=== PATIENT | male | born 1955 | race African-American/Black ===

== ENCOUNTER 2017-08-19 14:39 | Emergency (ER) | payer SELFPAY ==
[~2017-08-19] VITALS: Ht 167.6 cm; Wt 83.4 kg
[~2017-08-19 14:39] MED LIST: ANTIVERT PO; ANTIVERT25 MG PO; CEPHALEXIN500 M1 PO; COLCHICINE0.6 MG PO; FLEXERIL PO; NAPROSYN500 MG PO; NO; ROBITUSSIN AC10 ML PO; ULTRAM50 M1 PO
[2017-08-19 15:28] LABS: HEMATOCRIT 40.7 % (39.0-50.0); HEMOGLOBIN 13.6 g/dl (14.0-18.0); IMMATURE GRANULOCYTES 0.3 % (0.0-1.0); MEAN CELL VOLUME 81.9 fL CALC (80.0-100.0); MEAN CORPUSCULAR HGB 27.4 pG CALC (26.0-32.0); MEAN CORPUSCULAR HGB CONC 33.4 g/L CALC (32.0-36.0); NEUT# 5.58 thou/uL (1.82-7.42); RED BLOOD COUNT 4.97 mill/uL (4.70-6.10); RED CELL DISTRI WIDTH 15.8 % (11.5-15.5)
[2017-08-19 15:30] LABS: URINE BILIRUBIN - DIPSTICK NEGATIVE (NEGATIVE); URINE BLOOD DIPSTICK NEGATIVE (NEGATIVE); URINE COLOR YELLOW; URINE GLUCOSE - DIPSTICK NEGATIVE (NEGATIVE); URINE KETONE NEGATIVE (NEGATIVE); URINE LEUK ESTERASE NEGATIVE (NEGATIVE); URINE NITRITE - DIPSTICK NEGATIVE (Negative); URINE PH 5.5 (4.5-8.0); URINE PROTEIN - DIPSTICK NEGATIVE (NEG-TRACE); URINE SPECIFIC GRAVITY 1.015; URINE UROBILINOGEN - DIPSTICK 0.2 E.U./dL (0.2)
[2017-08-19 15:34] LABS: URINE CLARITY CLEAR
[2017-08-19 15:46] LABS: ALBUMIN 3.3 g/dL (3.2-5.0); ALKALINE PHOSPHATASE 74 u/l (38-126); ANION GAP 16 (6-22 (CALC)); BILIRUBIN, TOTAL 0.3 mg/dL (0.0-1.4); BUN 11 mg/dL (9-20); BUN/CREATININE RATIO 11 (12-20 (CALC)); CARBON DIOXIDE 25 mmol/l (22-30); CHLORIDE 105 mmol/l (95-108); GFR > 60 ML/MIN (>=60 (CALC)); GFR FOR AFR.AMER. > 60 ML/MIN (>=60 (CALC)); LIPASE 180 u/l (23-300); POTASSIUM 4.3 mmol/l (3.5-5.1); SGOT/AST 21 u/l (17-59); SGPT/ALT 40 u/l (21-72); SODIUM 141 mmol/l (137-146)
[2017-08-19] MEDS ORDERED: TRAMADOL HYDROC50 MG PO (15:51)
[2017-08-19] MEDS ORDERED: FLEXERIL PO (15:51)
[2017-08-19] MEDS ORDERED: NAPROXEN DR500 MG PO (15:51)
[2017-08-19 16:06] VITALS: BP 125/64
== END 2017-08-19 16:14 | disposition home or self-care (01) | DRG 392 ==
LOC: ED 14:39
PROVIDERS: Emergency Medicine
DX: R10.9 Unspecified abdominal pain (principal); F17.210 Nicotine dependence, cigarettes, uncomplicated; M10.9 Gout, unspecified; R42 Dizziness and giddiness

== ENCOUNTER 2018-07-10 15:03 | Emergency (ER) | payer OTHER ==
[~2018-07-10] VITALS: Ht 167.6 cm; Wt 78.8 kg
[~2018-07-10 15:03] MED LIST changes: +NAPROXEN DR500 MG PO; +TRAMADOL HYDROC50 MG PO
[2018-07-10] MEDS ORDERED: FLEXERIL PO (17:11)
[2018-07-10] MEDS ORDERED: NAPROSYN500 MG PO (17:11)
[2018-07-10 17:23] VITALS: BP 110/64
== END 2018-07-10 17:23 | disposition home or self-care (01) | DRG 552 ==
LOC: ED 15:03
DX: S13.9XXA Sprain of joints and ligaments of unspecified parts of neck, initial encounter (principal); S33.5XXA Sprain of ligaments of lumbar spine, initial encounter; F17.200 Nicotine dependence, unspecified, uncomplicated; V49.50XA Passenger injured in collision with unspecified motor vehicles in traffic accident, initial encounter

== ENCOUNTER 2020-04-08 10:54 | Emergency (ER) | payer SELFPAY ==
[~2020-04-08] VITALS: Ht 167.6 cm; Wt 72.0 kg
[2020-04-08] MEDS ORDERED: FAMCICLOVIR500 MG PO (11:52)
[2020-04-08] MEDS ORDERED: ZOVIRAX52 TOP (11:52)
[2020-04-08] MEDS ORDERED: ULTRAM50 M1 PO (11:52)
[2020-04-08 12:01] VITALS: BP 96/75
== END 2020-04-08 12:26 | disposition home or self-care (01) | DRG 596 ==
LOC: ED 10:54
DX: B02.9 Zoster without complications (principal); F17.200 Nicotine dependence, unspecified, uncomplicated

== ENCOUNTER 2020-04-17 11:22 | Emergency (ER) | payer SELFPAY ==
[~2020-04-17] VITALS: Ht 167.6 cm; Wt 72.0 kg
[~2020-04-17 11:22] MED LIST changes: +FAMCICLOVIR500 MG PO; +ZOVIRAX52 TOP
[2020-04-17 11:25] VITALS: BP 95/66
[2020-04-17] MEDS ORDERED: VALACYCLOVIR HCL1 GM PO (12:04)
== END 2020-04-17 12:17 | disposition home or self-care (01) | DRG 596 ==
LOC: ED 11:22
DX: B02.9 Zoster without complications (principal); F17.200 Nicotine dependence, unspecified, uncomplicated

== ENCOUNTER 2020-04-23 15:39 | Emergency (ER) | payer SELFPAY ==
[~2020-04-23] VITALS: Ht 167.6 cm; Wt 70.5 kg
[~2020-04-23 15:39] MED LIST changes: +VALACYCLOVIR HCL1 GM PO
[2020-04-23 16:44] LABS: HEMATOCRIT 41.5 % (39.0-50.0); HEMOGLOBIN 13.3 g/dl (14.0-18.0); IMMATURE GRANULOCYTES 0.5 % (0.0-5.0); MEAN CELL VOLUME 77.6 fL CALC (80.0-100.0); MEAN CORPUSCULAR HGB 24.9 pG CALC (26.0-32.0); NEUT# 5.98 thou/uL (1.82-7.42); RED BLOOD COUNT 5.35 mill/uL (4.70-6.10); RED CELL DISTRI WIDTH 18.2 % (11.5-15.5)
[2020-04-23 16:58] LABS: ANION GAP 14 (6-22 (CALC)); BUN 8 mg/dL (8-23); BUN/CREATININE RATIO 7 (12-20 (CALC)); CARBON DIOXIDE 25 mmol/l (22-30); CHLORIDE 105 mmol/l (95-108); CREATININE 1.1 mg/dL (0.7-1.3); GFR > 60 ML/MIN (>=60 (CALC)); GFR FOR AFR.AMER. > 60 ML/MIN (>=60 (CALC)); POTASSIUM 3.8 mmol/l (3.5-5.1); SGOT/AST 26 u/l (19-48); SODIUM 140 mmol/l (137-146)
[2020-04-23 17:09] LABS: ALKALINE PHOSPHATASE 205 u/l (38-126); BILIRUBIN, TOTAL 0.8 mg/dL (0.0-1.4); TOTAL PROTEIN 9.7 g/dL (6.3-8.2)
[2020-04-23 18:22] VITALS: BP 90/58
[2020-04-23] MEDS ORDERED: LORTAB 7.57.5 MG PO (18:38)
[2020-04-23] MEDS ORDERED: FAMCICLOVIR500 MG PO (18:38)
== END 2020-04-23 19:13 | disposition home or self-care (01) | DRG 596 ==
LOC: ED 15:39
DX: B02.9 Zoster without complications (principal); F17.200 Nicotine dependence, unspecified, uncomplicated; T37.5X6A Underdosing of antiviral drugs, initial encounter; Z91.128 Patient's intentional underdosing of medication regimen for other reason
CPT/HCPCS: Q9967

== ENCOUNTER 2020-11-24 00:23 | Emergency (ER) | payer SELFPAY ==
[~2020-11-24 00:23] MED LIST changes: +LORTAB 7.57.5 MG PO
[2020-11-24 01:06] LABS: HEMOGLOBIN 12.4 g/dl (14.0-18.0); IMMATURE GRANULOCYTES 0.9 % (0.0-5.0); MEAN CELL VOLUME 77.1 fL CALC (80.0-100.0); MEAN CORPUSCULAR HGB 24.5 pG CALC (26.0-32.0); MEAN CORPUSCULAR HGB CONC 31.8 g/dL CAL (32.0-36.0); NEUT# 5.57 thou/uL (1.82-7.42); RED BLOOD COUNT 5.06 mill/uL (4.70-6.10); RED CELL DISTRI WIDTH 16.6 % (11.5-15.5)
[2020-11-24 01:15] LABS: ALBUMIN 3.7 g/dL (3.2-5.0); ALKALINE PHOSPHATASE 185 u/l (38-126); ANION GAP 20 (6-22 (CALC)); BILIRUBIN, TOTAL 0.8 mg/dL (0.0-1.4); BUN 13 mg/dL (8-23); BUN/CREATININE RATIO 12 (12-20 (CALC)); CARBON DIOXIDE 20 mmol/l (22-30); CHLORIDE 101 mmol/l (95-108); CREATININE 1.1 mg/dL (0.7-1.3); ETHYL ALCOHOL 0 mg/dl (0-30); GFR > 60 ML/MIN (>=60 (CALC)); GFR FOR AFR.AMER. > 60 ML/MIN (>=60 (CALC)); LIPASE 46 u/l (23-300); POTASSIUM 4.4 mmol/l (3.5-5.1); SODIUM 137 mmol/l (137-146); TOTAL PROTEIN 8.8 g/dL (6.3-8.2)
[2020-11-24 01:16] LABS: SGOT/AST 57 u/l (19-48)
[2020-11-24 01:20] LABS: INTERNATIONAL NORMALIZED RATIO 1.2 RATIO (0.7-1.3); PROTHROMBIN TIME 12.7 SECONDS (9.0-12.5)
[2020-11-24 06:42] LABS: URINE BLOOD DIPSTICK NEGATIVE (NEGATIVE); URINE COLOR YELLOW; URINE GLUCOSE - DIPSTICK NEGATIVE (NEGATIVE); URINE KETONE 15 mg/dL (NEGATIVE); URINE LEUK ESTERASE NEGATIVE (NEGATIVE); URINE PH 5.5 (4.5-8.0); URINE PROTEIN - DIPSTICK NEGATIVE (NEG-TRACE); URINE SPECIFIC GRAVITY 1.025; URINE UROBILINOGEN - DIPSTICK 0.2 E.U./dL (0.2)
[2020-11-24 06:55] LABS: URINE BILIRUBIN - DIPSTICK SMALL (NEGATIVE)
[2020-11-24 06:56] LABS: URINE NITRITE - DIPSTICK NEGATIVE (Negative)
[2020-11-24 08:04] VITALS: BP 103/71
[2020-11-24 09:20] LABS: HEMATOCRIT 37.8 % (39.0-50.0); HEMOGLOBIN 12.2 g/dl (14.0-18.0); IMMATURE GRANULOCYTES 0.4 % (0.0-5.0); MEAN CELL VOLUME 77.1 fL CALC (80.0-100.0); MEAN CORPUSCULAR HGB 24.9 pG CALC (26.0-32.0); MEAN CORPUSCULAR HGB CONC 32.3 g/dL CAL (32.0-36.0); NEUT# 3.36 thou/uL (1.82-7.42); RED BLOOD COUNT 4.9 mill/uL (4.70-6.10); RED CELL DISTRI WIDTH 16.9 % (11.5-15.5)
== END 2020-11-24 09:05 | disposition home or self-care (01) | DRG 897 ==
LOC: ED 00:23 → ED-I 03:01 → ED 03:01 → ED-I 03:02 → ED 03:02 → ED-I 09:05
PROVIDERS: Emergency Medicine; Hospitalist
DX: F14.10 Cocaine abuse, uncomplicated (principal); M10.9 Gout, unspecified; F17.200 Nicotine dependence, unspecified, uncomplicated; Z20.822 Contact with and (suspected) exposure to COVID-19